=== PATIENT | female | born 1935 | race Caucasian/White ===

== ENCOUNTER → 2018-11-17 10:15 | Outpatient (CLI) | payer OTHER, SELFPAY ==
[2018-11-17 13:25] LABS: Campylobacter Not Detected (Not Detect); Clostridium difficile toxin AB Not Detected (Not Detect); Cryptosporidium Not Detected (Not Detect); Enteroaggregative E.coli Not Detected (Not Detect); Enteropathogenic E.coli Not Detected (Not Detect); Enterotoxigenic E.coli It/st Not Detected (Not Detect); Plesiomonsa shigelloides Not Detected (Not Detect); Salmonella Not Detected (Not Detect); Shiga-like toxin-prod E.coli Not Detected (Not Detect); Shigella/Enteroinvasive E.coli Not Detected (Not Detect); Vibrio Not Detected (Not Detect); Vibrio cholerae Not Detected (Not Detect); Yersinia enterocolitica Not Detected (Not Detect)
[2018-11-17 13:26] LABS: Adenovirus F 40/41 Not Detected (Not Detect); Astrovirus Not Detected (Not Detect); Cyclospora cayetanensis Not Detected (Not Detect); Entamoeba histolytica Not Detected (Not Detect); Giardia lamblia Not Detected (Not Detect); Norovirus GI/GII Not Detected (Not Detect); Rotavirus A Not Detected (Not Detect); Sapovirus Not Detected (Not Detect)
== END ==
PROVIDERS: PCP Physician Assistant; Visit Provider Student in an Organized Health Care Education/Training Program
DX: R19.7 Diarrhea, unspecified (principal)
CPT/HCPCS: 87507

== ENCOUNTER → 2019-01-26 13:53 | Outpatient (CLI) | payer OTHER, SELFPAY | PROVIDERS: PCP Student in an Organized Health Care Education/Training Program; Visit Provider Student in an Organized Health Care Education/Training Program | DX: M81.0 Age-related osteoporosis without current pathological fracture (principal); Z78.0 Asymptomatic menopausal state; Z87.891 Personal history of nicotine dependence | CPT/HCPCS: 77080 ==

== ENCOUNTER → 2019-08-19 15:15 | Outpatient (CLI) | payer OTHER, SELFPAY | PROVIDERS: PCP Student in an Organized Health Care Education/Training Program; Visit Provider Physician Assistant | DX: J02.9 Acute pharyngitis, unspecified (principal); R30.0 Dysuria | CPT/HCPCS: 87070; 87077; 87086; 87186 ==

== ENCOUNTER → 2020-11-28 19:40 | Outpatient (ROUT) | payer OTHER, SELFPAY | PROVIDERS: PCP Student in an Organized Health Care Education/Training Program; Visit Provider Internal Medicine | DX: N39.0 Urinary tract infection, site not specified (principal) | CPT/HCPCS: 87077; 87086; 87186 ==

== ENCOUNTER → 2020-12-27 10:10 | Outpatient (CLI) | payer OTHER, SELFPAY ==
--- NOTE | 2020-12-27 | DI.RAD.S_ITS ---
PROCEDURE: XR CHEST 2V INDICATIONS: Other nonspecific abnormal finding of lung field TECHNIQUE: 2 views of the chest were acquired. COMPARISON: [facility], , THORACIC SPINE 3 VIEWS, 06/17/2007, 17:37. FINDINGS: Surgical changes and devices: None. Lungs and pleura: No pleural effusions or pneumothorax. No acute consolidation. High-density presumed 5 mm calcified granuloma projecting in the right lung base. Mediastinum: Mediastinal contours are normal. Heart size is normal. Bones and chest wall: Lateral curvature of the spine and discogenic changes. IMPRESSION: No acute disease. Dictated by: Neal Adames M.D. on 12/27/2020 at 14:41 Approved by: Neal Adames M.D. on 12/27/2020 at 14:44
== END ==
PROVIDERS: PCP Student in an Organized Health Care Education/Training Program; Referring Provider Student in an Organized Health Care Education/Training Program; Visit Provider Student in an Organized Health Care Education/Training Program
DX: R91.8 Other nonspecific abnormal finding of lung field (principal)
CPT/HCPCS: 71046

== ENCOUNTER → 2021-01-11 09:07 | Outpatient (CLI) | payer OTHER, SELFPAY | PROVIDERS: PCP Student in an Organized Health Care Education/Training Program; Referring Provider Student in an Organized Health Care Education/Training Program; Visit Provider Student in an Organized Health Care Education/Training Program | DX: M81.0 Age-related osteoporosis without current pathological fracture (principal); Z78.0 Asymptomatic menopausal state; Z87.891 Personal history of nicotine dependence | CPT/HCPCS: 77080 ==

== ENCOUNTER → 2021-08-06 08:08 | Outpatient (CLI) | payer OTHER, SELFPAY ==
--- NOTE | 2021-08-06 | DI.US.S_ITS ---
PROCEDURE: US PELVIC COMPLETE INDICATIONS: UTERINE MASS ON CT IVP AT [facility]. TECHNIQUE: Real-time scanning was performed of the pelvic organs, with image documentation. Additional endovaginal scanning was necessary due to incomplete visualization of the adnexal and endometrial structures by transabdominal scanning. COMPARISON: [facility], CT, CT IVP, 06/15/2021, 16:10. [facility], US, PELVIC COMPLETE, 03/06/2010, 8:38. FINDINGS: Uterus: Uterus is anteverted and normal in size at 5.7 x 6.6 x 5.2 cm. The myometrium is homogeneous. The endometrium measures 24 mm combined thickness. The endometrial stripe is thickened and heterogeneous. There is a fibroid seen on the right anteriorly measuring 2.1 x 2.3 x 1.8 cm. Ovaries: Neither ovary is well seen. No adnexal masses are seen on either side. Other: No pathologic free abdominal or pelvic fluid. The prevoid bladder volume is 340 cc. The postvoid bladder volume is 117 cc. IMPRESSION: Abnormally thickened, heterogeneous endometrial stripe. Given the age of the patient, concern is raised for endometrial neoplasm, although differential diagnosis would also include endometrial hyperplasia. It is noted that in 2010, the endometrial stripe was similarly thickened. Please consider correlation with endometrial histology. Moderate postvoid residual, 117 cc. We strive to produce accurate, complete, and clear reports of imaging services. To assist us in improving patient care, this report was composed using standard report templates and voice recognition software. Therefore, it may contain abnormal punctuation, insertions and/or omissions. Occasional wrong-word or sound-alike substitutions may occur. Though we review the report and make efforts to correct it, we do recommend that the report be read carefully in proper context to recognize any text inaccuracies. Dictated by: Jonatan Cardoza M.D. on 08/06/2021 at 12:24 Approved by: Jonatan Cardoza M.D. on 08/06/2021 at 12:28
== END ==
PROVIDERS: PCP Student in an Organized Health Care Education/Training Program; Referring Provider Student in an Organized Health Care Education/Training Program; Visit Provider Student in an Organized Health Care Education/Training Program
DX: N85.8 Other specified noninflammatory disorders of uterus (principal); D25.9 Leiomyoma of uterus, unspecified; R93.89 Abnormal findings on diagnostic imaging of other specified body structures
CPT/HCPCS: 76830; 76856

== ENCOUNTER → 2021-09-17 14:05 | Outpatient (CLI) | payer OTHER, SELFPAY ==
[2021-09-17 15:14] LABS: COVID19 -Nasal RAPID Negative (Negative)
== END ==
PROVIDERS: PCP Student in an Organized Health Care Education/Training Program; Visit Provider Obstetrics & Gynecology
DX: Z01.812 Encounter for preprocedural laboratory examination; Z20.822 Contact with and (suspected) exposure to COVID-19
CPT/HCPCS: 87635; C9803

== ENCOUNTER 2021-09-18 06:28 | Day surgery (SDC) | payer OTHER, SELFPAY ==
[2021-09-17 14:12] VITALS: BMI 28.6
[2021-09-18] VITALS (7 sets, daily range): BP systolic 119–147; BP diastolic 49–80; PULSE 77–82; RESP 10–17; TEMP 36.2–36.6; O2SAT 94–100; BMI 29.1
--- NOTE | 2021-09-18 | PATH_ITS ---
[facility] Accession Number: [id number] . 01 Material submitted: . body - UTERINE MASS . 02 Diagnosis: A. Uterine Mass, Excision: Fragments of nonproliferative endometrium associated with endometrial polyp(s) and with features of atrophy and cystic change. Negative for endometrioid intraepithelial neoplasia and malignancy. Few fragments of benign smooth muscle with hyalinization and dystrophic calcifications. MRV 09/21/2021 0948 Local . 02 Electronically signed: . Viry Kim MD, Pathologist NPI- [id number] . 01 Gross description: . The specimen is received in formalin, labeled with the patient's name and uterine mass, is composed of an aggregate of schroeder-white to schroeder-brown soft tissue fragments measuring 6.5 x 5.0 x 1.0 cm. The specimen is entirely submitted. . Summary of Sections: A1-A10. Entire specimen. ([id number]) /MRV 09/19/2021 1449 Local . 02 Pathologist provided ICD-10: N84.0, N94.89 . 02 CPT . 810660 Specimen Comment: A courtesy copy of this report has been sent to [phone] Performed at: 01 [facility] [address], [place], [place] [id number] MD Yaron Waters MD Phone: [phone] Performed at: 02 [facility] [address] [place], [place] [id number] MD Padmini Diaz MD Phone: [phone]
[2021-09-18] MEDS: LACTATED RINGERS 1,000 ML 100 ML IV (07:35)
--- NOTE | 2021-09-18 07:46 | PM.HP.1 ---
History of Present Illness History of Present Illness Date Patient Seen: 09/18/21 Time Patient Seen: 07:46 Chief complaint: D&C HYSTEROSCOPY W/POLYPECTOMY Narrative: Patient is an 85-year-old 2 para 2 who presents for a D&C hysteroscopy with removal of endometrial mass. Patient History Medical History (Updated 09/17/21 @ 14:16 by Dorcas Blankenship RN) Former smoker HTN (hypertension) Postmenopausal Recurrent UTI Family & Social History Social History: household members none Tobacco & Substance use: Smoking Status Former smoker alcohol intake current alcohol intake frequency a few times a week Substance Use Type does not use Meds Home Medications and Allergies Home Medications Medication Instructions Recorded Confirmed Type cholecalciferol (vitamin D3) 25 1,000 unit PO QDAY #0 03/08/17 09/18/21 History mcg (1,000 unit) tablet (Vitamin D3) felodipine 5 mg tablet,extended 10 mg PO QDAY #0 03/08/17 09/18/21 History release 24 hr lisinopril 40 mg tablet 40 mg PO QDAY #0 03/08/17 08/27/21 History ibuprofen 200 mg tablet 400 mg PO Q8H 08/27/21 09/18/21 History Allergies Allergy/AdvReac Type Severity Reaction Status Date / Time sodium pentathol Allergy Severe Anaphylaxis Uncoded 09/18/21 06:54 Exam Vital Signs (past 8 hours): - 09/18/21 07:06 Temperature 97.2 F L Pulse Rate 82 Respiratory Rate 16 Blood Pressure 147/80 H Pulse Oximetry 99 Oxygen Delivery Method Room Air Narrative Exam Narrative: HEENT: No thyromegaly, no anterior cervical or supraclavicular lymphadenopathy. Lungs:Clear to auscultation bilaterally, no wheezes. Cardiovascular: Regular rate and rhythm, no murmurs, rubs, or gallops. Abdomen: No scars. No hepatosplenomegaly. No masses palpable. External genitalia: Atrophic Vagina: Atrophic Cervix: Atrophic Bimanual exam: 7 Week size uterus. Mobile. No adnexal masses or tenderness Extremities: No edema Assessment & Plan Assessment & Plan narrative: Assessment: 85-year-old 2 para 2 with an endometrial mass Plan: D&C hysteroscopy with removal of the mass The risks, benefits, and alternatives to the procedure were explained to the patient. The risks including bleeding, infection, and uterine perforation. She understands these risks and agrees to proceed. A full par Q was held and consent form was signed. COVID-19 COVID-19 status: Negative Result date/Date tested (Pos, Neg/Pending): 09/17/21 Time Spent With Patient Time with patient: less than 30 minutes Critical Care time: I spent a total of [] minutes of critical care time on this patient's care today; this time is exclusive of procedural time.
--- NOTE | 2021-09-18 07:49 | PM.PREOP ---
Pre-operative Note COVID-19 COVID-19 status: Negative Result date/Date tested (Pos, Neg/Pending): 09/17/21 Criteria for continued procedure: Delay expected to result in less-positive ultimate med/surg outcome and Non-surgical alternatives not available or appropriate per current SOC Interval Note History & Physical reviewed/Exam performed by Physician: Yes Changes to H&P: No H&P completed within 30 days and has changed as indicated here:: 09/18/21
--- NOTE | 2021-09-18 08:13 | SUR.OPER ---
Lithotomy on padded OR bed, head on pillow, arms secured on padded arm boards at <90 degrees abduction. Legs secured in padded yellow fins stirrups.
--- NOTE | 2021-09-18 09:35 | PM.GYNOP.1 ---
Operative Date/Time/Diagnoses Date of procedure: 09/18/21 Time of procedure: 09:35 Pre-op diagnosis: Endometrial mass Post-op diagnosis: same Procedure & Clinicians Procedure: Procedures Operation Date: 09/18/21 07:45 Actual Procedure Side Surgeon p Hysteroscopy D&C, Resection of Uterine Mass Not Applicable Marlene Deyr MD Indications: Endometrial mass on ultrasound Surgeon: Marlene Dyer Anesthesia Type: General (LMA) Operative Notes Findings: 7 week size anteverted uterus Both fallopian tube ostia observed Large polyp originating from the posterior fundus of the uterus Closure Type: not applicable Specimen(s): other (Endometrial mass) Estimated blood loss (mL): 10 Blood products transfused: none Procedure in detail: After informed consent was obtained, the patient was taken to the operating room where she was placed in the dorsal supine position. After adequate LMA general anesthesia was achieved, she was placed in the dorsal lithotomy position, and prepped and draped in the usual sterile fashion. A time-out was performed. A bivalve speculum was placed into the vagina and the anterior lip of the cervix was grasped with a single-tooth tenaculum. Cervical os was sequentially dilated to the # 8 Hegar dilator. The hysteroscope passed easily into the endometrial cavity. There was a large mass originating from the posterior fundus of the uterus. The hysteroscope was removed. The resectoscope was then placed with the fluid changed to sorbitol. The mass in the uterus was resected in approximately 20 pieces. Hemostasis was achieved. The settings were 80 cut and 60 cautery. A total of 14 L of sorbitol and 600 of normal saline were used during the procedure. The fluid deficit was a 1000 cc. A basic metabolic panel was sent from the operating room. The instruments were removed from the uterus. Single-tooth tenaculum was removed from the anterior lip of the cervix. The bivalve speculum was removed from the vagina. Sponge, lap, and instrument counts were correct x2. The patient tolerated the procedure well, and was taken to PACU in stable condition. Complications: none Post-operative Condition: stable Disposition: PACU Plan for aftercare: Home after recovery
[2021-09-18 09:58] LABS: BUN Creatinine Ratio 15.3 (6-22); Blood Urea Nitrogen 20 mg/dL (7-17); Calcium 9.3 mg/dL (8.4-10.2); Carbon Dioxide 26 mmol/L (22-32); Chloride 108 mmol/L (98-107); Estimated Glomerular Filt Rate 38.8 mL/min (>60); Glucose 111 mg/dL (80-110); HEMOLYSIS < 15 (0-50); Potassium 4.5 mmol/L (3.4-5.1); Sodium 139 mmol/L (137-145)
[2021-09-18] MEDS: OXYCODONE/ACETAMINOPHEN 5/325 TABLET 1 TAB PO (10:03)
--- NOTE | 2021-09-18 10:21 | SUR.PHASEII ---
Received to PACU after general anesthesia. Airway patent, self maintained. Report from Dr Traore and FREDDIE Lucero/
== END 2021-09-18 10:25 | disposition home or self-care (01) ==
PROVIDERS: PCP Student in an Organized Health Care Education/Training Program; Referring Provider Obstetrics & Gynecology; Visit Provider Obstetrics & Gynecology
PROC: 0UDB8ZZ Extraction of Endometrium, Via Natural or Artificial Opening Endoscopic (ICD-10-PCS; CPT 58558; principal; 2021-09-18 07:45)
DX: N84.0 Polyp of corpus uteri (principal); N94.89 Other specified conditions associated with female genital organs and menstrual cycle; I10 Essential (primary) hypertension
CPT/HCPCS: 58563; 80048; J3010